=== PATIENT | male | born 1970 ===

== ENCOUNTER 2019-05-11 07:18 | Emergency (ER) | payer OTHER ==
[~2019-05-11] VITALS: Ht 172.7 cm; Wt 100.7 kg
[2019-05-11] MEDS ORDERED: HYZAAR 100-251 EACH PO (07:21)
[2019-05-11] MEDS ORDERED: ATENOLOL100 MG PO (07:21)
== END 2019-05-11 14:04 | disposition home or self-care (01) ==
LOC: ER 07:18 → CPU-OBS 07:46 → ER 14:04
DX: R07.89 Other chest pain (principal)
CPT/HCPCS: G0378; G0379; 93005